=== PATIENT | female | born 1955 | race Caucasian/White ===

== ENCOUNTER 2016-10-08 14:36 | Emergency (ER) | payer OTHER ==
[~2016-10-08] VITALS: Ht 170.2 cm; Wt 70.8 kg
--- NOTE | ~2016-10-08 | EKG ---
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
[2016-10-08 15:04] LABS: URINE BILIRUBIN NEGATIVE (Negative); URINE BLOOD NEGATIVE (Negative); URINE COLOR YELLOW; URINE GLUCOSE-RANDOM* 3+ (Negative); URINE KETONES NEGATIVE (Negative); URINE NITRITE NEGATIVE (Negative); URINE PROTEIN (DIPSTICK) NEGATIVE (Negative); URINE SPECIFIC GRAVITY <= 1.005 (1.003-1.035); URINE UROBILINOGEN 0.2 E.U./dl (0.2-1.0)
[2016-10-08] MEDS ORDERED: LANTUS100 UNIT/M SUBQ (15:21)
[2016-10-08] MEDS ORDERED: GLYBURIDE 2.52.5 MG PO (15:22)
[2016-10-08] MEDS ORDERED: LEVOTHYROXIN0.137 M1 PO (15:22)
[2016-10-08] MEDS ORDERED: GLUCOPHAGE1000 MG PO (15:22)
[2016-10-08] MEDS ORDERED: ANTIVERT25 MG PO (15:23)
[2016-10-08] MEDS ORDERED: ASPIR 8181 MG PO (15:23)
[2016-10-08 15:25] LABS: ABSOLUTE NEUTROPHILS 3.5 thou/uL (1.4-8.2); BASOPHILS 1.1 % (0.0-2.0); EOSINOPHILS 1.9 % (0.0-3.0); HEMATOCRIT 42.5 % (37.0-47.0); HEMOGLOBIN 14.9 gm/dL (12.0-15.0); LYMPHOCYTES 36.3 % (24.0-44.0); MCH 30.3 pg (26.0-34.0); MCHC 35.2 g/dL (28.0-37.0); MCV 86.2 fL (80.0-100.0); PLATELET COUNT 329 thou/uL (150-400); POLYS 53.7 % (36.0-66.0); RBC 4.93 mil/uL (4.20-5.00); WBC 6.5 thou/uL (4.0-11.0)
[2016-10-08 15:26] LABS: MANUAL DIFF NO
[2016-10-08 15:33] LABS: ANION GAP 10 mmol/L (7-16); BUN 11 mg/dL (7-18); CALCIUM 9.4 mg/dL (8.5-10.1); CHLORIDE 100 mmol/L (98-107); CO2 23 mmol/L (21-32); CREATININE 0.9 mg/dL (0.6-1.3); GLUCOSE 367 mg/dL (70-99); POTASSIUM 3.9 mmol/L (3.5-5.1); SODIUM 133 mmol/L (136-145)
[2016-10-08 15:40] LABS: ALBUMIN 4.1 g/dL (3.4-5.0); ALKALINE PHOSPHATASE 109 U/L (46-116); SGOT 15 U/L (15-37); SGPT 20 U/L (30-65); TOTAL BILIRUBIN 0.3 mg/dL (<0.1-1.0); TOTAL PROTEIN 7.8 g/dL (6.4-8.2); TROPONIN-I < 0.04 ng/mL (<0.04-0.07)
[2016-10-08] MEDS ORDERED: TOPROL XL25 MG PO (16:49)
[2016-10-08 17:04] VITALS: BP 117/59
== END 2016-10-08 17:09 ==
LOC: ER 14:36
PROVIDERS: Physician Assistant
DX: I47.1 Supraventricular tachycardia (principal); E11.9 Type 2 diabetes mellitus without complications; E05.00 Thyrotoxicosis with diffuse goiter without thyrotoxic crisis or storm; F17.210 Nicotine dependence, cigarettes, uncomplicated; Z90.710 Acquired absence of both cervix and uterus; Z88.5 Allergy status to narcotic agent; Z88.0 Allergy status to penicillin; Z88.2 Allergy status to sulfonamides; Z91.041 Radiographic dye allergy status

== ENCOUNTER 2016-11-19 14:21 | Inpatient (IN) | payer OTHER ==
[~2016-11-19] VITALS: Ht 170.2 cm; Wt 70.3 kg
--- NOTE | ~2016-11-19 | HC ---
[facility] [place] [address] CONSULTATION Name: VAL LOPEZ Room #: 426-P ADM IN M.R.#: [id number] Admission: 11/19/16 Attend Phys: Nguyễn Buckley DO Discharge: Date of : 57 Report #: [id number] THIS REPORT FOR: //name// CC: BALDEMAR physician/PCP Nguyễn Buckley DATE OF SERVICE: 11/19/2016 INDICATION: Chest pain and palpitations. HISTORY OF PRESENT ILLNESS: This is a 61-year-old female presenting with palpitations. She reports having a longstanding history of intermittent palpitations, which she feels is related to thyroid disease. She apparently has a prior history of Grave disease and is currently on Synthroid. About a month ago, she presented to the ER for an evaluation for lightheadedness. During that evaluation, she was noted to have a PSVT with spontaneous termination. The patient was started on a beta micaela. At home, her episodes of palpitations seemed to have improved until today. She reports having a rapid heart rate that did not resolve when she lie down. When she sat on the edge of the bed, she developed the heaviness in the chest area, radiating down the left arm. She denies any associated symptoms of shortness of breath or diaphoresis. There is no history of fever, chills or nausea. PAST MEDICAL HISTORY: Diabetes mellitus, hypertension, tobacco use, PSVT, thyroid disease. ALLERGIES: INCLUDE CODEINE, CONTRAST DYE, IODINE, SULFA, PENICILLIN. MEDICATIONS: Include metoprolol 50 mg daily, glyburide, levothyroxine, insulin, metformin and aspirin. SOCIAL HISTORY: Positive tobacco use, 1 pack per day. FAMILY HISTORY: Negative for premature CAD. REVIEW OF SYSTEMS: A full 10-point review of systems performed. Only the pertinent positives and negatives as described in the HPI. PHYSICAL EXAMINATION: VITAL SIGNS: Blood pressure is 130/70, heart rate is 83 beats per minute. GENERAL APPEARANCE: A well-developed, well-nourished female, in no acute respiratory distress. HEAD AND EYES: Normocephalic. Sclerae are anicteric. ENT: Oral mucosa moist. NECK: Supple. LUNGS: Clear to auscultation. [facility] [address] [place] [address] CONSULTATION Name: VAL LOPEZ Room #: [address] [place] [address] IN M.R.#: [id number] Admission: 11/19/16 Attend Phys: Nguyễn Buckley DO Discharge: Date of : 57 Report #: [id number] CARDIAC: Regular rate and rhythm, S1, S2 positive. ABDOMEN: Soft, nontender. Bowel sounds positive. EXTREMITIES: No major joint deformities. Trace lower extremity edema. DIAGNOSTIC DATA: ECG reveals sinus rhythm, otherwise normal. LABORATORY VALUES: White count is 5.5, hemoglobin is 12.8. Sodium is 141. Troponin is negative x 2. TSH is 0.198. ASSESSMENT AND PLAN: 1. Palpitations, on the monitor she has evidence for paroxysmal atrial tachycardia. May be related to thyroid abnormalities. May need adjustment of her Synthroid. We will change the beta micaela to atenolol. She will need an echocardiogram to rule out structural heart disease. 2. Chest pain, rule out ischemia versus musculoskeletal versus gastrointestinal related. Serial troponin levels are negative so far and the ECG does not show any acute ST segment changes. The plan is to proceed with noninvasive stress testing. 3. Hypertension, continue with medications. 4. Diabetes mellitus, continue with insulin regimen, check fingersticks. 5. Tobacco use, complete smoking cessation is discussed. Thank you for allowing me to participate in the care of your patient. <ELECTRONICALLY SIGNED> By: Liang Plunkett MD 11/20/16 0804 [id number] Liang Plunkett MD /nt
--- NOTE | ~2016-11-19 | EKG ---
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
[~2016-11-19 14:21] MED LIST: ANTIVERT25 MG PO; ASPIR 8181 MG PO; GLUCOPHAGE1000 MG PO; GLYBURIDE 2.52.5 MG PO; LANTUS100 UNIT/M SUBQ; LEVOTHYROXIN0.137 M1 PO; TOPROL XL25 MG PO
[2016-11-19 14:25] VITALS: BP 145/71
[2016-11-19 15:07] LABS: ABSOLUTE NEUTROPHILS 2.6 thou/uL (1.4-8.2); BASOPHILS 0.8 % (0.0-2.0); EOSINOPHILS 2.6 % (0.0-3.0); HEMATOCRIT 36.9 % (37.0-47.0); HEMOGLOBIN 12.8 gm/dL (12.0-15.0); LYMPHOCYTES 42.2 % (24.0-44.0); MCH 30.6 pg (26.0-34.0); MCHC 34.6 g/dL (28.0-37.0); MCV 88.2 fL (80.0-100.0); MONOCYTES 7.5 % (1.0-8.0); PLATELET COUNT 310 thou/uL (150-400); POLYS 46.9 % (36.0-66.0); RBC 4.18 mil/uL (4.20-5.00); WBC 5.5 thou/uL (4.0-11.0)
[2016-11-19 15:09] LABS: MANUAL DIFF NO
[2016-11-19 15:15] LABS: ANION GAP 10 mmol/L (7-16); BUN 8 mg/dL (7-18); CALCIUM 9.5 mg/dL (8.5-10.1); CHLORIDE 105 mmol/L (98-107); CO2 26 mmol/L (21-32); CREATININE 0.6 mg/dL (0.6-1.0); GLUCOSE 69 mg/dL (74-106); POTASSIUM 3.6 mmol/L (3.5-5.1); SODIUM 141 mmol/L (136-145)
[2016-11-19 15:27] LABS: NT-PRO BRAIN NAT PEPTIDE 99 pg/mL (<300); TROPONIN-I < 0.04 ng/mL (<0.04-0.07)
[2016-11-19 18:36] VITALS: BP 120/69
[2016-11-19 21:00] VITALS: BP 130/80
[2016-11-19 23:37] VITALS: BP 141/70
[2016-11-20 03:26] VITALS: BP 126/55
[2016-11-20 06:09] LABS: ABSOLUTE NEUTROPHILS 2.4 thou/uL (1.4-8.2); BASOPHILS 1.1 % (0.0-2.0); EOSINOPHILS 2.4 % (0.0-3.0); HEMATOCRIT 34.5 % (37.0-47.0); HEMOGLOBIN 11.9 gm/dL (12.0-15.0); LYMPHOCYTES 39.1 % (24.0-44.0); MANUAL DIFF NO; MCH 30.5 pg (26.0-34.0); MCHC 34.5 g/dL (28.0-37.0); MCV 88.3 fL (80.0-100.0); MONOCYTES 9.2 % (1.0-8.0); PLATELET COUNT 281 thou/uL (150-400); POLYS 48.2 % (36.0-66.0); RBC 3.91 mil/uL (4.20-5.00); RDW 13.9 % (10.5-14.5)
[2016-11-20 06:17] LABS: CALCIUM 8.7 mg/dL (8.5-10.1); CREATININE 0.7 mg/dL (0.6-1.0); MAGNESIUM 1.8 mg/dL (1.8-2.4)
[2016-11-20 07:30] VITALS: BP 109/55
[2016-11-20 12:00] VITALS: BP 139/82
[2016-11-20 17:00] VITALS: BP 127/66
[2016-11-20 20:00] VITALS: BP 121/53
[2016-11-20 22:05] LABS: GLYCOHEMOGLOBIN (HGB A1C) 8.2 % (4.8-5.6)
[2016-11-21 04:00] VITALS: BP 123/65
[2016-11-21 07:10] VITALS: BP 130/54
[2016-11-21 12:48] VITALS: BP 130/54
[2016-11-21] MEDS ORDERED: ATENOLOL 50MG T50 MG PO (13:13)
== END 2016-11-21 13:35 | disposition home or self-care (01) | DRG 310 ==
LOC: ER 14:21 → 4E 16:22 → 4W 16:22 → 4E 18:12
PROVIDERS: Internal Medicine Geriatric Medicine; Nurse Practitioner
DX: I47.1 Supraventricular tachycardia (principal); E11.649 Type 2 diabetes mellitus with hypoglycemia without coma; R07.9 Chest pain, unspecified; E05.00 Thyrotoxicosis with diffuse goiter without thyrotoxic crisis or storm; F17.210 Nicotine dependence, cigarettes, uncomplicated; I10 Essential (primary) hypertension; Z88.0 Allergy status to penicillin; Z88.6 Allergy status to analgesic agent; Z91.041 Radiographic dye allergy status; Z88.2 Allergy status to sulfonamides; Z90.710 Acquired absence of both cervix and uterus; Z79.4 Long term (current) use of insulin; Z71.6 Tobacco abuse counseling; Z79.899 Other long term (current) drug therapy
CPT/HCPCS: 10183